=== PATIENT | male | born 1925 | race Caucasian/White ===

== ENCOUNTER 2017-01-02 13:00 | Inpatient (IN) | payer OTHER ==
[~2017-01-02] VITALS: Ht 167.6 cm; Wt 86.4 kg
[~2017-01-02 13:00] MED LIST: ALDACTONE25 MG; ALDACTONE25 MG PO; AMLODIPINE BESY10 MG PO; AMMONIUM LACTA224 GM TP; ASPIR 8181 M1 PO; ATORVASTATIN CA20 MG PO; Colace PO; DIOVAN HCT 1601 EACH PO; FINASTERIDE5 M1 PO; FINASTERIDE5 MG PO; FLOMAX0.4 M1 PO; FLOMAX0.4 MG PO; Flomax PO; Keflex PO; LEVOFLOXACIN500 MG PO; LEVOFLOXACIN750 MG PO; LIPITOR20 MG PO; MEN'S MULTI-VI1 EACH PO; METOPROLOL TART25 MG PO; OMEPRAZOLE20 M3 PO; PROSCAR5 MG PO; Proscar PO; Sodium Bicarbonate PO; XARELTO15 MG PO
[2017-01-02 14:14] LABS: HEMATOCRIT 43.4 % (38.0-50.0); MCH 31.4 PG (29.0-34.0); MCHC 33.6 G/DL (30.0-36.0); MCV 93.3 FL (86-99); PLATELET COUNT 183 K/uL (156-360); RBC DIS.WIDTH-CV 12.6 % (11.8-14.6); RBC DIS.WIDTH-SD 43.1 % (39-53); RED BLOOD COUNT 4.65 M/uL (4.00-5.50); WHITE BLOOD COUNT 10.1 K/uL (4.1-10.2)
[2017-01-02 14:23] LABS: CHLORIDE 110 mEq/L (99-109); POTASSIUM 3.6 mEq/L (3.7-5.4); SODIUM 141 mEq/L (136-147)
[2017-01-02 14:25] LABS: GLUCOSE 124 mg/dL (70-99)
[2017-01-02 14:27] LABS: ANION GAP 11 MEQ/L (2-14); TOTAL BILIRUBIN 0.8 mg/dL (0.0-1.0)
[2017-01-02 14:29] LABS: ALKALINE PHOSPHATASE 44 IU/L (3-129); GFR ESTIMATE (CALCULATED) > 59 mL/min/
[2017-01-02 14:30] LABS: UREA NITROGEN (BUN) 21 mg/dL (9-23)
[2017-01-02 14:35] LABS: TROP-I INTERPRETATION NEGATIVE; TROPONIN-I < 0.01 ng/mL (0.0-0.30)
[2017-01-02 18:00] LABS: COLOR BLOODY ((YELLOW)); LEUKOCYTES NEGATIVE; NITRITE NEGATIVE
[2017-01-02 18:01] LABS: ADD MIUA? YES; BILIRUBIN NEGATIVE; BLOOD LARGE; GLUCOSE (STRIP) NEGATIVE; KETONES NEGATIVE; PROTEIN (STRIP) 100; UROBILINOGEN 0.2 MG/DL (0.2-1.0)
[2017-01-02 21:56] LABS: RED BLOOD CELLS TNTC /HPF (0-5)
[2017-01-02 21:57] LABS: UCUL ADDED? YES
[2017-01-02 22:28] LABS: BASE EXCESS -2.3 mEq/L (-3 to +3); BICARBONATE 22.5 mEq/L (22-26); CARBOXY HGB 1.8 % (0-5); COMMENTS - BLOOD GASES A+C+; DEVICE NC; O2 FLOW 4 L/MIN; PCO2 38 mm Hg (35-45); PO2 111 mm Hg (80-100); SITE RR; pH 7.38 (7.35-7.45)
[2017-01-03 02:10] VITALS: BP 139/99
[2017-01-03 06:19] LABS: HEMATOCRIT 41.8 % (38.0-50.0); MCHC 33.3 G/DL (30.0-36.0); MCV 96.1 FL (86-99); MEAN PLAT.VOLUME 10.2 uM^3 (9.0-12.4); PLATELET COUNT 173 K/uL (156-360); RBC DIS.WIDTH-CV 12.9 % (11.8-14.6); RBC DIS.WIDTH-SD 45.4 % (39-53); RED BLOOD COUNT 4.35 M/uL (4.00-5.50); WHITE BLOOD COUNT 9.1 K/uL (4.1-10.2)
[2017-01-03 06:47] LABS: ANION GAP 9 MEQ/L (2-14); CHLORIDE 110 MEQ/L (99-109); GFR ESTIMATE (CALCULATED) > 59 mL/min/; GLUCOSE 93 mg/dL (70-99); POTASSIUM 4.1 MEQ/L (3.7-5.4); SAMPLE HEMOLYSIS CHECK 0; SAMPLE ICTERIC CHECK 0; SAMPLE LIPEMIA CHECK 0; SODIUM 144 MEQ/L (136-147); UREA NITROGEN (BUN) 16 mg/dL (9-23)
[2017-01-03 07:47] VITALS: BP 184/92
[2017-01-03 11:17] VITALS: BP 154/77
[2017-01-03 16:10] VITALS: BP 171/79
[2017-01-03 20:02] VITALS: BP 160/73
[2017-01-03 23:19] VITALS: BP 151/70
[2017-01-04 16:19] VITALS: BP 171/87
[2017-01-04 23:47] VITALS: BP 173/80
[2017-01-05 05:27] VITALS: BP 158/80
[2017-01-05 07:32] VITALS: BP 166/91
[2017-01-05 16:37] VITALS: BP 154/78
[2017-01-05 20:00] VITALS: BP 148/63
[2017-01-06] VITALS (7 sets, daily range): BP systolic 136–183; BP diastolic 74–99
[2017-01-07 07:20] VITALS: BP 177/103
[2017-01-07 10:13] LABS: HEMATOCRIT 42.1 % (38.0-50.0); MCH 31.3 PG (29.0-34.0); MCHC 33.3 G/DL (30.0-36.0); MCV 94.2 FL (86-99); MEAN PLAT.VOLUME 10.3 uM^3 (9.0-12.4); PLATELET COUNT 183 K/uL (156-360); RBC DIS.WIDTH-CV 12.8 % (11.8-14.6); RBC DIS.WIDTH-SD 44.3 % (39-53); RED BLOOD COUNT 4.47 M/uL (4.00-5.50); WHITE BLOOD COUNT 8.1 K/uL (4.1-10.2)
[2017-01-07 10:40] LABS: ALKALINE PHOSPHATASE 41 IU/L (3-129); ANION GAP 11 MEQ/L (2-14); CHLORIDE 107 MEQ/L (99-109); GFR ESTIMATE (CALCULATED) > 59 mL/min/; GLUCOSE 131 mg/dL (70-99); SAMPLE HEMOLYSIS CHECK 0; SAMPLE ICTERIC CHECK 0; SAMPLE LIPEMIA CHECK 0; SODIUM 140 MEQ/L (136-147); TOTAL BILIRUBIN 0.7 MG/DL (0.0-1.0); UREA NITROGEN (BUN) 23 mg/dL (9-23)
[2017-01-07 12:10] VITALS: BP 148/70
[2017-01-07 16:20] VITALS: BP 154/82
[2017-01-07 16:42] VITALS: BP 175/89
[2017-01-07 23:01] VITALS: BP 158/83
[2017-01-08 07:24] VITALS: BP 146/80; BP 1466/80
[2017-01-08] MEDS ORDERED: AMLODIPINE BESYL5 MG PO (13:35)
[2017-01-08] MEDS ORDERED: Tylenol Extra Streng PO (13:35)
[2017-01-08] MEDS ORDERED: METOPROLOL SUCC25 MG PO (13:35)
== END 2017-01-08 14:40 | disposition home or self-care (01) | DRG 726 ==
LOC: EME 13:00 → 5EAST 01-03 00:18 → EDOF 01-03 00:18 → ENRESERV 01-03 00:21 → 5EAST 01-03 01:54
PROVIDERS: Emergency Medicine; Internal Medicine
DX: N40.1 Benign prostatic hyperplasia with lower urinary tract symptoms (principal); M25.062 Hemarthrosis, left knee; J98.11 Atelectasis; R31.0 Gross hematuria; I71.4 Abdominal aortic aneurysm, without rupture; I16.0 Hypertensive urgency; R33.8 Other retention of urine; K40.90 Unilateral inguinal hernia, without obstruction or gangrene, not specified as recurrent; I48.2 Chronic atrial fibrillation; I12.9 Hypertensive chronic kidney disease with stage 1 through stage 4 chronic kidney disease, or unspecified chronic kidney disease; M17.11 Unilateral primary osteoarthritis, right knee; M17.12 Unilateral primary osteoarthritis, left knee; Z68.30 Body mass index [BMI] 30.0-30.9, adult; R55 Syncope and collapse; N18.9 Chronic kidney disease, unspecified; I99.8 Other disorder of circulatory system; K21.9 Gastro-esophageal reflux disease without esophagitis; Z87.891 Personal history of nicotine dependence; Z83.3 Family history of diabetes mellitus; Z80.3 Family history of malignant neoplasm of breast
CPT/HCPCS: 36600; 70450; 71010; 73560; 74177; 80048; 80053; 81003; 82803; 84484; 84550; 85027; 87086 GA; 93005; 97530 GO; 99202; 99281; 99285; J0360; J1650; J2405; J7030

== ENCOUNTER 2017-06-26 13:25 | Inpatient (IN) | payer OTHER ==
[~2017-06-26] VITALS: Ht 172.7 cm; Wt 92.9 kg
[~2017-06-26 13:25] MED LIST changes: +AMLODIPINE BESYL5 MG PO; +METOPROLOL SUCC25 MG PO; +Tylenol Extra Streng PO
[2017-06-26 15:02] LABS: BASOPHIL (%) 0.5 % (0-1); EOSINOPHIL (%) 5.8 % (0-5); EOSINOPHIL COUNT 0.5 K/uL (0-0.3); HEMOGLOBIN 13.8 G/DL (12.5-16.6); IMMATURE GRANULOCYTE (%) 0.4 % (0.0-0.7); LYMPHOCYTE (%) 11.2 % (15-42); LYMPHOCYTE COUNT 0.9 K/uL (1.0-2.8); MCH 32.2 PG (29.0-34.0); MCHC 34.5 G/DL (30.0-36.0); MCV 93.2 FL (86-99); MONOCYTE (%) 7.9 % (3-12); MONOCYTE COUNT 0.6 K/uL (0-0.8); NEUTROPHIL (%) 74.2 % (45-76); PLATELET COUNT 231 K/uL (156-360); RBC DIS.WIDTH-CV 13.9 % (11.8-14.6); RBC DIS.WIDTH-SD 47.7 % (39-53); RED BLOOD COUNT 4.29 M/uL (4.00-5.50); WHITE BLOOD COUNT 8.1 K/uL (4.1-10.2)
[2017-06-26 15:10] LABS: CHLORIDE 110 mEq/L (99-109); POTASSIUM 3.3 mEq/L (3.7-5.4); SODIUM 140 mEq/L (136-147)
[2017-06-26 15:12] LABS: GLUCOSE 136 mg/dL (70-99)
[2017-06-26 15:16] LABS: CREATININE 3.7 mg/dL (0.6-1.3); GFR ESTIMATE (CALCULATED) 17 mL/min/ (58.99-99999)
[2017-06-26 15:17] LABS: UREA NITROGEN (BUN) 48 mg/dL (9-23)
[2017-06-26 16:35] LABS: APPEARANCE CLEAR ((CLEAR)); BILIRUBIN NEGATIVE; BLOOD NEGATIVE; COLOR YELLOW ((YELLOW)); GLUCOSE (STRIP) NEGATIVE; KETONES NEGATIVE; LEUKOCYTES LARGE; NITRITE NEGATIVE; PROTEIN (STRIP) 30; SPECIFIC GRAVITY 1.009 (1.000-1.030); UROBILINOGEN 0.2 MG/DL (0.2-1.0)
[2017-06-26] MEDS ORDERED: ALLOPURINOL100 MG PO (16:38)
[2017-06-26] MEDS ORDERED: FUROSEMIDE20 MG PO (16:39)
[2017-06-26] MEDS ORDERED: TAMSULOSIN HCL0.4 MG PO (16:40)
[2017-06-26] MEDS ORDERED: POTASSIUM CHLO20 ME1 PO (16:41)
[2017-06-26] MEDS ORDERED: XARELTO15 MG PO (16:42)
[2017-06-26] MEDS ORDERED: DUONEB 2.5-0.5 M3 ML AEROSOL (16:42)
[2017-06-26] MEDS ORDERED: ONE DAILY ESSE1 EACH PO (16:47)
[2017-06-26 16:48] LABS: BACTERIA NONE SEEN /HPF; EPITHELIAL CELLS RARE /HPF; HYALINE CASTS 0-5 /LPF; MUCUS NONE SEEN /LPF; RED BLOOD CELLS 0-5 /HPF (0-5); WHITE BLOOD CELLS 20-30 /HPF (0-5)
[2017-06-26] MEDS ORDERED: PROAIR HFA8.5 GM IH (16:49)
[2017-06-26] MEDS ORDERED: OMEPRAZOLE20 MG PO (16:54)
[2017-06-26] MEDS ORDERED: AMLODIPINE BESY10 MG PO (16:56)
[2017-06-26] MEDS ORDERED: FINASTERIDE5 MG PO (16:57)
[2017-06-26] MEDS ORDERED: LOPRESSOR25 MG PO (17:05)
[2017-06-26 22:30] VITALS: BP 126/71
[2017-06-26 23:00] VITALS: BP 102/53
[2017-06-27 07:22] LABS: CHLORIDE 114 MEQ/L (99-109); CREATININE 3.5 MG/DL (0.6-1.3); GFR ESTIMATE (CALCULATED) 18 mL/min/ (58.99-99999); GLUCOSE 102 mg/dL (70-99); POTASSIUM 3.5 MEQ/L (3.7-5.4); SODIUM 145 MEQ/L (136-147); UREA NITROGEN (BUN) 46 mg/dL (9-23)
[2017-06-27 07:42] VITALS: BP 101/59
[2017-06-27 23:50] VITALS: BP 109/59
[2017-06-28 06:51] LABS: BASOPHIL (%) 0.4 % (0-1); EOSINOPHIL (%) 6.8 % (0-5); EOSINOPHIL COUNT 0.5 K/uL (0-0.3); HEMATOCRIT 37.3 % (38.0-50.0); HEMOGLOBIN 12.2 G/DL (12.5-16.6); IMMATURE GRANULOCYTE (%) 0.4 % (0.0-0.7); LYMPHOCYTE (%) 13.7 % (15-42); LYMPHOCYTE COUNT 0.9 K/uL (1.0-2.8); MCHC 32.7 G/DL (30.0-36.0); MCV 94.9 FL (86-99); MONOCYTE (%) 9.4 % (3-12); MONOCYTE COUNT 0.6 K/uL (0-0.8); NEUTROPHIL (%) 69.3 % (45-76); NEUTROPHIL COUNT 4.7 K/uL (1.8-6.4); PLATELET COUNT 227 K/uL (156-360); RBC DIS.WIDTH-SD 48.7 % (39-53); RED BLOOD COUNT 3.93 M/uL (4.00-5.50); WHITE BLOOD COUNT 6.8 K/uL (4.1-10.2)
[2017-06-28 07:18] LABS: ALBUMIN 3.2 G/DL (3.2-4.8); CHLORIDE 113 MEQ/L (99-109); CREATININE 3.6 MG/DL (0.6-1.3); GFR ESTIMATE (CALCULATED) 17 mL/min/ (58.99-99999); GLUCOSE 132 mg/dL (70-99); MAGNESIUM 1.8 mg/dl (1.3-2.7); PHOSPHORUS 4.2 mg/dL (2.5-4.9); POTASSIUM 3.3 MEQ/L (3.7-5.4); SODIUM 144 MEQ/L (136-147); UREA NITROGEN (BUN) 45 mg/dL (9-23)
[2017-06-28 07:20] VITALS: BP 125/75
[2017-06-28 16:02] VITALS: BP 116/71
[2017-06-29 00:04] VITALS: BP 131/74
[2017-06-29 07:16] LABS: ALBUMIN 3.2 G/DL (3.2-4.8); ALKALINE PHOSPHATASE 41 IU/L (3-129); ALT (GPT) 11 IU/L (3-49); AST (GOT) 10 IU/L (2-34); CHLORIDE 113 MEQ/L (99-109); GFR ESTIMATE (CALCULATED) 22 mL/min/ (58.99-99999); GLUCOSE 110 mg/dL (70-99); MAGNESIUM 1.7 mg/dl (1.3-2.7); PHOSPHORUS 3.7 mg/dL (2.5-4.9); POTASSIUM 3.4 MEQ/L (3.7-5.4); SODIUM 142 MEQ/L (136-147); TOTAL BILIRUBIN 0.6 MG/DL (0.0-1.0); UREA NITROGEN (BUN) 41 mg/dL (9-23)
[2017-06-29 07:22] VITALS: BP 125/62
[2017-06-29 07:26] LABS: CREATININE 2.9 MG/DL (0.6-1.3)
[2017-06-29 16:09] VITALS: BP 121/68
[2017-06-29 23:37] VITALS: BP 128/67
[2017-06-30 06:05] LABS: BASOPHIL (%) 0.3 % (0-1); EOSINOPHIL (%) 4.6 % (0-5); EOSINOPHIL COUNT 0.3 K/uL (0-0.3); HEMATOCRIT 36.2 % (38.0-50.0); IMMATURE GRANULOCYTE (%) 0.4 % (0.0-0.7); LYMPHOCYTE (%) 13.3 % (15-42); LYMPHOCYTE COUNT 0.9 K/uL (1.0-2.8); MCH 31.3 PG (29.0-34.0); MCHC 33.1 G/DL (30.0-36.0); MCV 94.5 FL (86-99); MONOCYTE COUNT 0.8 K/uL (0-0.8); NEUTROPHIL (%) 69.4 % (45-76); NEUTROPHIL COUNT 4.9 K/uL (1.8-6.4); PLATELET COUNT 190 K/uL (156-360); RBC DIS.WIDTH-CV 14.2 % (11.8-14.6); RBC DIS.WIDTH-SD 48.8 % (39-53); RED BLOOD COUNT 3.83 M/uL (4.00-5.50)
[2017-06-30 06:41] LABS: CHLORIDE 115 MEQ/L (99-109); GFR ESTIMATE (CALCULATED) 27 mL/min/ (58.99-99999); GLUCOSE 103 mg/dL (70-99); POTASSIUM 3.5 MEQ/L (3.7-5.4); SODIUM 144 MEQ/L (136-147); UREA NITROGEN (BUN) 32 mg/dL (9-23)
[2017-06-30 06:44] LABS: CREATININE 2.4 MG/DL (0.6-1.3)
[2017-06-30 07:13] VITALS: BP 130/76
[2017-06-30 15:56] VITALS: BP 122/80
[2017-06-30 23:42] VITALS: BP 138/78
[2017-07-01 07:11] LABS: ALBUMIN 3.1 G/DL (3.2-4.8); CHLORIDE 108 MEQ/L (99-109); GFR ESTIMATE (CALCULATED) 34 mL/min/ (58.99-99999); GLUCOSE 115 mg/dL (70-99); PHOSPHORUS 2.9 mg/dL (2.5-4.9); POTASSIUM 3.4 MEQ/L (3.7-5.4); SODIUM 144 MEQ/L (136-147); UREA NITROGEN (BUN) 29 mg/dL (9-23)
[2017-07-01 07:19] VITALS: BP 122/71
[2017-07-01 16:36] VITALS: BP 116/73
[2017-07-02 01:08] VITALS: BP 131/81
[2017-07-02 06:51] LABS: CHLORIDE 111 MEQ/L (99-109); CREATININE 2.1 MG/DL (0.6-1.3); GFR ESTIMATE (CALCULATED) 32 mL/min/ (58.99-99999); GLUCOSE 100 mg/dL (70-99); PHOSPHORUS 2.9 mg/dL (2.5-4.9); POTASSIUM 3.4 MEQ/L (3.7-5.4); SODIUM 139 MEQ/L (136-147); UREA NITROGEN (BUN) 29 mg/dL (9-23)
[2017-07-02 07:48] VITALS: BP 122/81
[2017-07-02] MEDS ORDERED: FAMOTIDINE20 MG PO (15:17)
[2017-07-02 16:10] VITALS: BP 121/72
[2017-07-02 16:17] LABS: BASOPHIL (%) 0.4 % (0-1); EOSINOPHIL (%) 3.8 % (0-5); EOSINOPHIL COUNT 0.3 K/uL (0-0.3); HEMATOCRIT 38.3 % (38.0-50.0); HEMOGLOBIN 12.7 G/DL (12.5-16.6); IMMATURE GRANULOCYTE (%) 0.6 % (0.0-0.7); LYMPHOCYTE (%) 12.6 % (15-42); LYMPHOCYTE COUNT 1.1 K/uL (1.0-2.8); MCH 31.3 PG (29.0-34.0); MCHC 33.2 G/DL (30.0-36.0); MCV 94.3 FL (86-99); MONOCYTE (%) 11.5 % (3-12); NEUTROPHIL (%) 71.1 % (45-76); NEUTROPHIL COUNT 6.1 K/uL (1.8-6.4); PLATELET COUNT 226 K/uL (156-360); RBC DIS.WIDTH-CV 14.2 % (11.8-14.6); RBC DIS.WIDTH-SD 49.1 % (39-53); RED BLOOD COUNT 4.06 M/uL (4.00-5.50); WHITE BLOOD COUNT 8.5 K/uL (4.1-10.2)
[2017-07-02 23:43] VITALS: BP 124/63
[2017-07-03 06:05] LABS: BASOPHIL (%) 0.3 % (0-1); EOSINOPHIL (%) 5.2 % (0-5); EOSINOPHIL COUNT 0.4 K/uL (0-0.3); HEMATOCRIT 34.4 % (38.0-50.0); HEMOGLOBIN 11.6 G/DL (12.5-16.6); IMMATURE GRANULOCYTE (%) 0.7 % (0.0-0.7); LYMPHOCYTE (%) 15.5 % (15-42); LYMPHOCYTE COUNT 1.1 K/uL (1.0-2.8); MCHC 33.7 G/DL (30.0-36.0); MCV 94.8 FL (86-99); MONOCYTE COUNT 0.8 K/uL (0-0.8); NEUTROPHIL (%) 67.3 % (45-76); NEUTROPHIL COUNT 4.9 K/uL (1.8-6.4); PLATELET COUNT 200 K/uL (156-360); RBC DIS.WIDTH-CV 14.2 % (11.8-14.6); RBC DIS.WIDTH-SD 48.9 % (39-53); RED BLOOD COUNT 3.63 M/uL (4.00-5.50); WHITE BLOOD COUNT 7.2 K/uL (4.1-10.2)
[2017-07-03 06:22] LABS: ALBUMIN 3.1 G/DL (3.2-4.8); CHLORIDE 113 MEQ/L (99-109); CREATININE 1.9 MG/DL (0.6-1.3); GFR ESTIMATE (CALCULATED) 36 mL/min/ (58.99-99999); GLUCOSE 98 mg/dL (70-99); POTASSIUM 3.6 MEQ/L (3.7-5.4); SODIUM 142 MEQ/L (136-147); UREA NITROGEN (BUN) 28 mg/dL (9-23)
[2017-07-03 06:40] VITALS: BP 129/71
== END 2017-07-03 11:33 | disposition home or self-care (01) | DRG 683 ==
LOC: EME 13:25 → RME 13:25 → 5EAST 17:35 → EDOF 17:35 → ENRESERV 18:06 → 5EAST 22:14
PROVIDERS: Internal Medicine; Internal Medicine Nephrology; Physician Assistant
DX: N17.9 Acute kidney failure, unspecified (principal); N13.8 Other obstructive and reflux uropathy; E87.2 Acidosis; N18.3 Chronic kidney disease, stage 3 (moderate); N10 Acute pyelonephritis; R31.0 Gross hematuria; I48.2 Chronic atrial fibrillation; I71.4 Abdominal aortic aneurysm, without rupture; K21.9 Gastro-esophageal reflux disease without esophagitis; E78.5 Hyperlipidemia, unspecified; E86.0 Dehydration; E87.6 Hypokalemia; I12.9 Hypertensive chronic kidney disease with stage 1 through stage 4 chronic kidney disease, or unspecified chronic kidney disease; N40.1 Benign prostatic hyperplasia with lower urinary tract symptoms; R33.8 Other retention of urine; N28.1 Cyst of kidney, acquired; Z87.891 Personal history of nicotine dependence; Z90.79 Acquired absence of other genital organ(s); Z86.79 Personal history of other diseases of the circulatory system; Z79.01 Long term (current) use of anticoagulants; Z80.3 Family history of malignant neoplasm of breast; Z83.3 Family history of diabetes mellitus
CPT/HCPCS: 36415; 71046; 76770; 80048; 80048 91; 80053; 80069; 81003; 83735; 84100; 85025; 87040; 87086; 89190; 93005; 99281; 99285; J1650; J7030